=== PATIENT | female | born 1995 | race Asian ===

== ENCOUNTER 2016-05-30 12:04 | Emergency (ER) | payer SELFPAY ==
[~2016-05-30] VITALS: Ht 157.5 cm; Wt 47.7 kg
[~2016-05-30 12:04] MED LIST: ABILIFY2 MG PO; AMOXICILLI400 MG/51 PO; AMOXICILLIN 25250 MG PO; CEPHALEXIN500 M1 PO; FERROUS SULFATE65 MG PO; MINIPRESS 5M5 MG/CAP PO; MULTI VITAMINS1 TAB PO; NAPROSYN500 MG PO; NEXPLANON68 MG ID; NO HOME MEDICATIONS; NORCO 325 MG-51 TAB PO; PEPCID 20MG TAB20 MG PO; SINGULAIR 110 MG/TAB; SINGULAIR 110 MG/TAB PO; ZOFRAN 4MG T4 MG/TAB PO; ZOVIRAX400 MG PO; ZYRTEC5 MG PO
[2016-05-30 12:05] VITALS: BP 115/72; PULSE 81; TEMP 98.3
[2016-05-30 12:56] LABS: PH 7 (5-8); URINE APPEARANCE Hazy; URINE BACTERIA Rare /hpf; URINE BILIRUBIN Negative (NEGATIVE); URINE BLOOD 3+ (NEGATIVE); URINE COLOR Yellow; URINE GLUCOSE Negative (NEGATIVE); URINE KETONE Negative (NEGATIVE); URINE RBC 20-50 /hpf; URINE UROBILINOGEN Negative (NEGATIVE)
[2016-05-30 13:00] LABS: HCG-QUALITATIVE URINE NEGATIVE
[2016-05-30 13:05] LABS: INFLUENZA B NEGATIVE
[2016-05-30] MEDS ORDERED: ZOFRAN ODT4 MG PO (13:19)
[2016-05-30] MEDS ORDERED: ULTRAM 50MG TAB50 MG PO (13:19)
== END 2016-05-30 13:18 | disposition home or self-care (01) ==
LOC: COL.ER 12:04
PROVIDERS: Nurse Practitioner
DX: R10.32 Left lower quadrant pain (principal); B34.9 Viral infection, unspecified

== ENCOUNTER 2016-06-05 14:40 | Emergency (ER) | payer SELFPAY ==
[~2016-06-05] VITALS: Ht 157.5 cm; Wt 47.7 kg
[~2016-06-05 14:40] MED LIST changes: +ULTRAM 50MG TAB50 MG PO; +ZOFRAN ODT4 MG PO
[2016-06-05 14:46] VITALS: BP 117/85; TEMP 99
[2016-06-05 15:33] LABS: BASO % 0.5 % (0.0-2.0); GRAN # 2.9 (1.4-6.5); GRAN % 73.2 % (42.2-75.2); HEMATOCRIT 42.5 % (35.0-45.0); LYMPH # 0.8 (1.2-3.4); LYMPH % 19.5 % (20.0-51.0); MEAN CELL VOLUME 85 fl (80.0-95.0); MEAN CORPUSCULAR HEMOGLOBIN 28 pg (26.0-32.0); MEAN CORPUSCULAR HGB CONC 33 g/dl (33.0-37.0); MEAN PLATELET VOLUME 9.1 fl (7.4-10.4); MONO # 0.3 (0.1-0.6); MONO % 6.3 % (1.7-9.3); PLATELET COUNT 224 K/mm3 (130-400); RED BLOOD COUNT 4.99 M/mm3 (4.10-5.30); REDCELL DISTRIBUTION WIDTH-CV 13.2 % (11.5-14.5)
[2016-06-05 15:42] LABS: ADJUSTED CALCIUM 8.9 mg/dL (8.4-10.2); ALBUMIN 4.6 gm/dL (3.5-5.0); BILIRUBIN,TOTAL 0.6 mg/dL (0.0-1.0); CALCIUM 9.4 mg/dL (8.4-10.2); CREATININE, serum 0.79 mg/dL (0.52-1.25); POTASSIUM 3.6 mmol/L (3.4-5.0); TOTAL PROTEIN 8.1 gm/dL (6.4-8.2)
[2016-06-05 16:23] LABS: PH 5 (5-8); URINE APPEARANCE Hazy; URINE BACTERIA None Seen /hpf; URINE BILIRUBIN Negative (NEGATIVE); URINE BLOOD Negative (NEGATIVE); URINE COLOR Yellow; URINE GLUCOSE 2+ (NEGATIVE); URINE KETONE 2+ (NEGATIVE); URINE RBC 0-2 /hpf; URINE UROBILINOGEN Negative (NEGATIVE)
[2016-06-05 17:12] VITALS: PULSE 100
== END 2016-06-05 17:12 | disposition home or self-care (01) ==
LOC: COL.ER 14:40
PROVIDERS: Emergency Medicine
DX: B34.9 Viral infection, unspecified (principal); R09.89 Other specified symptoms and signs involving the circulatory and respiratory systems
CPT/HCPCS: J1885; J2765; J3010; J7030

== ENCOUNTER 2017-02-27 20:16 | Emergency (ER) | payer SELFPAY ==
[~2017-02-27] VITALS: Ht 157.5 cm; Wt 47.7 kg
[2017-02-27 20:25] VITALS: BP 141/60; TEMP 98.9
[2017-02-27 22:06] VITALS: PULSE 80
== END 2017-02-27 22:08 | disposition home or self-care (01) ==
LOC: COL.ER 20:16
DX: J06.9 Acute upper respiratory infection, unspecified (principal); Z87.09 Personal history of other diseases of the respiratory system